=== PATIENT | male | born 1965 | race Caucasian/White ===

== ENCOUNTER 2019-08-27 15:44 | Emergency (ER) | payer SELFPAY ==
[~2019-08-27] VITALS: Ht 177.8 cm; Wt 87.0 kg
[~2019-08-27 15:44] MED LIST: BACTRIM DS1 TAB OR; PERCOCET 5/325M1 TAB OR
[2019-08-27] MEDS ORDERED: IBUPROFEN600 MG PO (20:14)
[2019-08-27 20:18] VITALS: BP 148/92
== END 2019-08-27 20:43 | disposition home or self-care (01) | DRG 554 ==
LOC: ED 15:44
DX: M87.822 Other osteonecrosis, left humerus (principal)

== ENCOUNTER 2022-07-02 21:24 | Emergency (ER) | payer SELFPAY ==
[~2022-07-02] VITALS: Ht 177.8 cm; Wt 77.2 kg
[~2022-07-02 21:24] MED LIST changes: +IBUPROFEN600 MG PO
[2022-07-02 21:30] VITALS: BP 178/101
[2022-07-02 21:46] VITALS: BP 178/103
[2022-07-02 22:00] VITALS: BP 177/104
[2022-07-02 22:05] LABS: HEMATOCRIT 43.9 % (39.0-50.0); HEMOGLOBIN 14.3 g/dl (14.0-18.0); IMMATURE GRANULOCYTES 0.1 % (0.0-5.0); MEAN CELL VOLUME 90.1 fL CALC (80.0-100.0); MEAN CORPUSCULAR HGB 29.4 pG CALC (26.0-32.0); MEAN CORPUSCULAR HGB CONC 32.6 g/dL CAL (32.0-36.0); NEUT# 8.72 thou/uL (1.82-7.42); RED BLOOD COUNT 4.87 mill/uL (4.70-6.10); RED CELL DISTRI WIDTH 12.8 % (11.5-15.5)
[2022-07-02 22:16] VITALS: BP 163/96
[2022-07-02 22:16] LABS: ALBUMIN 4.3 g/dL (3.2-5.0); ALKALINE PHOSPHATASE 91 u/l (38-126); ANION GAP 14 (6-22 (CALC)); BILIRUBIN, TOTAL 0.5 mg/dL (0.0-1.4); BUN 14 mg/dL (9-20); BUN/CREATININE RATIO 18 (12-20 (CALC)); CARBON DIOXIDE 22 mmol/l (22-30); CHLORIDE 104 mmol/l (95-108); CREATININE 0.8 mg/dL (0.7-1.3); GFR FOR AFR.AMER. > 60 ML/MIN (>=60 (CALC)); GFR OTHER RACES > 60 ML/MIN (>=60 (CALC)); LIPASE 193 u/l (23-300); POTASSIUM 4.2 mmol/l (3.5-5.1); SGOT/AST 45 u/l (17-59); SODIUM 136 mmol/l (137-146); TOTAL PROTEIN 7.3 g/dL (6.3-8.2)
[2022-07-02 22:25] LABS: MYOGLOBIN 56 ng/mL (0 - 121)
[2022-07-02 22:31] VITALS: BP 167/114
[2022-07-02 23:01] LABS: URINE BILIRUBIN - DIPSTICK NEGATIVE (NEGATIVE); URINE BLOOD DIPSTICK NEGATIVE (NEGATIVE); URINE COLOR YELLOW; URINE GLUCOSE - DIPSTICK NEGATIVE (NEGATIVE); URINE KETONE NEGATIVE (NEGATIVE); URINE LEUK ESTERASE NEGATIVE (NEGATIVE); URINE PH 6.5 (4.5-8.0); URINE PROTEIN - DIPSTICK NEGATIVE (NEG-TRACE); URINE UROBILINOGEN - DIPSTICK 0.2 E.U./dL (0.2)
[2022-07-02 23:03] LABS: URINE NITRITE - DIPSTICK NEGATIVE (Negative)
[2022-07-03] MEDS ORDERED: PROMETHAZINE HY25 M1 PO (00:09)
== END 2022-07-03 01:03 | disposition home or self-care (01) | DRG 392 ==
LOC: ED 21:24
PROVIDERS: Family Medicine
DX: A08.4 Viral intestinal infection, unspecified (principal)
CPT/HCPCS: Q9967

== ENCOUNTER 2024-03-26 11:01 | Emergency (ER) | payer MEDICAID ==
[~2024-03-26] VITALS: Ht 177.8 cm; Wt 170.0 kg
[~2024-03-26 11:01] MED LIST changes: +PROMETHAZINE HY25 M1 PO
[2024-03-26 12:21] VITALS: BP 153/110
[2024-03-26] MEDS ORDERED: KETOROLAC TROMETHAMINE 30 MG/ML SDV IM ONE (12:35)
[2024-03-26] MEDS ORDERED: ACETAMINOPHEN 500 MG TAB PO ONE (12:35)
[2024-03-26] MEDS ORDERED: AMOX/K CLAV875 M1 PO (12:35)
[2024-03-26] MEDS ORDERED: NAPROXEN500 MG PO (12:35)
[2024-03-26 12:45] VITALS: BP 135/108
[2024-03-26 13:00] VITALS: BP 147/100
[2024-03-26 13:16] VITALS: BP 154/98
[2024-03-26 13:25] VITALS: BP 152/88
== END 2024-03-26 13:25 | disposition home or self-care (01) ==
LOC: ED 11:01
DX: K08.89 Other specified disorders of teeth and supporting structures (principal)